=== PATIENT | female | born 1970 | race Two or more races ===

== ENCOUNTER 2022-12-21 16:30 | Emergency (ER) | payer MEDICAID ==
[~2022-12-21 16:30] MED LIST: ALBUAER3 IN; ALIR1INJ2 SC; ASPI-543 PO; ATOR40TA52 PO; CHOL1CAP58 PO; DULA1INJ SC; GABA300C10 PO; IBUP800T27 PO; LISI-716 PO; MEDR5TAB28 PO; NAP500T PO
[2022-12-21 19:01] VITALS: BP 123/73
[2022-12-21] MEDS ORDERED: ACET650T4 PO (19:13)
[2022-12-21] MEDS ORDERED: ACETAMINOPHEN 325 MG TAB PO ONE (19:15)
== END 2022-12-21 19:32 | disposition home or self-care (01) ==
LOC: ER 16:35
DX: R10.32 Left lower quadrant pain (principal); M54.50 Low back pain, unspecified; I10 Essential (primary) hypertension; I25.10 Atherosclerotic heart disease of native coronary artery without angina pectoris; E78.5 Hyperlipidemia, unspecified; Z79.1 Long term (current) use of non-steroidal anti-inflammatories (NSAID); Z79.82 Long term (current) use of aspirin; Z79.899 Other long term (current) drug therapy; V49.50XA Passenger injured in collision with unspecified motor vehicles in traffic accident, initial encounter; Y93.89 Activity, other specified; Y92.410 Unspecified street and highway as the place of occurrence of the external cause; Y99.8 Other external cause status

== ENCOUNTER 2022-12-25 07:11 | Day surgery (SDC) | payer MEDICAID ==
[~2022-12-25] VITALS: Ht 154.9 cm; Wt 81.6 kg
[~2022-12-25 07:11] MED LIST changes: +ACET650T4 PO
[2022-12-25] MEDS ORDERED: IODIXANOL 320MG/ML 100ML BTL IV ONE (08:55)
[2022-12-25] MEDS ORDERED: LIDOCAINE 2%HCL (LOCAL ANESTH.) INJ 10ml MDV ONE (08:55)
[2022-12-25] MEDS ORDERED: fentaNYL CITRATE 100 MCG/2 ML VL ONE (09:40)
[2022-12-25] MEDS ORDERED: MIDAZOLAM HCL 2MG/2ML 2ml VIAL (1mg/ml) ONE (09:41)
[2022-12-25 09:42] VITALS: BP 138/89
[2022-12-25] MEDS ORDERED: VERAPAMIL 2.5MG/ML INJ 2ML VIAL IV ONE (09:42)
[2022-12-25 09:47] VITALS: BP 122/81
[2022-12-25 10:02] VITALS: BP 124/89
[2022-12-25] MEDS ORDERED: METF-370 PO (10:14)
[2022-12-25 10:17] VITALS: BP 126/80
[2022-12-25 11:32] VITALS: BP 122/76
[2022-12-25 11:47] VITALS: BP 113/63
== END 2022-12-25 12:11 | disposition home or self-care (01) ==
LOC: CATH 07:11
PROVIDERS: ATTEND Internal Medicine Cardiovascular Disease
DX: R94.39 Abnormal result of other cardiovascular function study (principal); R07.89 Other chest pain; E11.9 Type 2 diabetes mellitus without complications; E78.5 Hyperlipidemia, unspecified; I10 Essential (primary) hypertension; D64.9 Anemia, unspecified; Z98.890 Other specified postprocedural states; Z79.899 Other long term (current) drug therapy; Z20.822 Contact with and (suspected) exposure to COVID-19
CPT/HCPCS: 93458; C1769; C1894; J1644; J2001; J2250; J3010; J7030; Q9967; U0003; 99152; 99153